=== PATIENT | male | born 1995 | race Caucasian/White ===

== ENCOUNTER 2023-10-24 04:00 | Day surgery (SDC) | payer OTHER ==
[2023-10-24] VITALS (218 sets, daily range): BP systolic 59–147; BP diastolic 34–116
[~2023-10-24] VITALS: Ht 172.7 cm; Wt 114.5 kg
[2023-10-24 08:25] LABS: BASO% 0.6 % (0-3); EOS% 5.6 % (0-8); HEMATOCRIT 41.2 % (39.0-50.0); HEMOGLOBIN 14.1 g/dl (14.0-18.0); IMMATURE GRANULOCYTES 0.4 % (0.0-5.0); LYMPH% 33.6 % (15-41); MEAN CELL VOLUME 86.4 fL CALC (80.0-100.0); MEAN CORPUSCULAR HGB 29.6 pG CALC (26.0-32.0); MEAN CORPUSCULAR HGB CONC 34.2 g/dL CAL (32.0-36.0); MONO% 8.8 % (2-13); NEUT# 2.66 thou/uL (1.82-7.42); RED BLOOD COUNT 4.77 mill/uL (4.70-6.10); RED CELL DISTRI WIDTH 12.1 % (11.5-15.5)
[2023-10-24 08:52] LABS: ALBUMIN 4.5 g/dL (3.2-5.0); ALKALINE PHOSPHATASE 79 u/l (38-126); ANION GAP 11 (6-22 (CALC)); BILIRUBIN, TOTAL 0.3 mg/dL (0.2-1.3); BUN 16 mg/dL (9-20); BUN/CREATININE RATIO 23 (12-20 (CALC)); CARBON DIOXIDE 27 mmol/l (22-30); CHLORIDE 106 mmol/l (95-108); CREATININE 0.7 mg/dL (0.7-1.3); GFR FOR AFR.AMER. > 60 ML/MIN (>=60 (CALC)); GFR OTHER RACES > 60 ML/MIN (>=60 (CALC)); POTASSIUM 4.5 mmol/l (3.5-5.1); SGOT/AST 39 u/l (17-59); SODIUM 141 mmol/l (137-146); TOTAL PROTEIN 6.8 g/dL (6.3-8.2)
[2023-10-24] MEDS ORDERED: CLONIDINE0.1 MG PO (15:43)
[2023-10-24] MEDS ORDERED: NALTREXONE50 MG PO (15:43)
[2023-10-24] MEDS ORDERED: KLONOPIN2 MG PO (15:43)
[2023-10-25 04:13] VITALS: BP 102/53
[2023-10-25 07:08] LABS: BASO% 0.1 % (0-3); HEMATOCRIT 40.6 % (39.0-50.0); HEMOGLOBIN 13.9 g/dl (14.0-18.0); IMMATURE GRANULOCYTES 1.2 % (0.0-5.0); MEAN CELL VOLUME 85.8 fL CALC (80.0-100.0); MEAN CORPUSCULAR HGB 29.4 pG CALC (26.0-32.0); MEAN CORPUSCULAR HGB CONC 34.2 g/dL CAL (32.0-36.0); MONO% 3.4 % (2-13); NEUT# 10.93 thou/uL (1.82-7.42); NEUT% 86.3 % (42-76); RED BLOOD COUNT 4.73 mill/uL (4.70-6.10); RED CELL DISTRI WIDTH 12.2 % (11.5-15.5)
[2023-10-25 07:10] VITALS: BP 108/49
[2023-10-25 07:42] LABS: ALKALINE PHOSPHATASE 78 u/l (38-126); ANION GAP 10 (6-22 (CALC)); BILIRUBIN, TOTAL 0.4 mg/dL (0.2-1.3); BUN 15 mg/dL (9-20); BUN/CREATININE RATIO 18 (12-20 (CALC)); CARBON DIOXIDE 25 mmol/l (22-30); CHLORIDE 111 mmol/l (95-108); CREATININE 0.8 mg/dL (0.7-1.3); GFR FOR AFR.AMER. > 60 ML/MIN (>=60 (CALC)); GFR OTHER RACES > 60 ML/MIN (>=60 (CALC)); MAGNESIUM 2.1 mg/dL (1.6-2.3); SGOT/AST 38 u/l (17-59); SODIUM 141 mmol/l (137-146); TOTAL PROTEIN 6.2 g/dL (6.3-8.2)
[2023-10-25 11:01] VITALS: BP 114/58
== END 2023-10-25 16:08 | disposition home or self-care (01) | DRG 897 ==
LOC: ANR 04:00 → MS2 04:00 → ANR 08:00 → MS2 17:12 → ANR 10-25 16:08
PROVIDERS: ATTEND Anesthesiology
DX: F11.20 Opioid dependence, uncomplicated (principal)
CPT/HCPCS: J0131; J2354; J3475